=== PATIENT | male | born 1960 | race Caucasian/White ===

== ENCOUNTER 2016-12-15 11:41 | Emergency (ER) | payer MEDICAID ==
[~2016-12-15] VITALS: Ht 175.3 cm; Wt 76.2 kg
[2016-12-15 11:48] VITALS: BP 126/81
[2016-12-15] MEDS ORDERED: IBUPROFEN 400 MG TABLET ONE (11:55)
[2016-12-15] MEDS ORDERED: IBUPROFEN 400 MG TABLET PO ONE (12:00)
== END 2016-12-15 13:12 | disposition home or self-care (01) ==
LOC: ER 11:43
DX: S02.2XXA Fracture of nasal bones, initial encounter for closed fracture (principal); S00.83XA Contusion of other part of head, initial encounter; Y04.0XXA Assault by unarmed brawl or fight, initial encounter; Y93.89 Activity, other specified; Y92.89 Other specified places as the place of occurrence of the external cause; Y99.8 Other external cause status
CPT/HCPCS: 70486; 99284; A4606; Z7610

== ENCOUNTER 2017-06-28 20:23 | Emergency (ER) | payer MEDICAID ==
[~2017-06-28] VITALS: Ht 162.6 cm; Wt 70.8 kg
[2017-06-28 20:26] VITALS: BP 133/70
== END 2017-06-28 20:53 | disposition home or self-care (01) ==
LOC: ER 20:25
DX: L72.3 Sebaceous cyst (principal)
CPT/HCPCS: 99283; A4606; Z7610

== ENCOUNTER 2018-03-23 12:00 | Emergency (ER) | payer MEDICAID ==
[~2018-03-23] VITALS: Ht 172.7 cm; Wt 68.0 kg
--- NOTE | 2018-03-23 12:10 | NUR ---
LLQ PAIN X 2 MONTHS, WORSENING X 1 WEEK. NAD NOTED, VSS, RESP EVEN AND UNLABORED, PT WAS PUT ON MONITOR, WAITING FOR MD WANG
[2018-03-23] MEDS ORDERED: ACETAMINOPHEN ES 500 MG TABLET ONE (12:29)
[2018-03-23] MEDS ORDERED: IV NS 0.9% 1,000 ML BAG IV ONE (12:30)
[2018-03-23] MEDS ORDERED: ACETAMINOPHEN 325 MG TABLET PO ONE (12:30)
[2018-03-23 12:40] LABS: BASOPHILS # (AUTO) 0.1 /CMM (0.0-0.2); EOSINOPHILS % (AUTO) 8.9 % (0.0-6.0); HEMATOCRIT 34 % (39-51); HEMOGLOBIN 11.1 g/dL (13.5-17.5); LYMPHOCYTES # (AUTO) 1.4 /CMM (0.8-4.8); LYMPHOCYTES % (AUTO) 16.5 % (20.0-44.0); MEAN CORPUSCULAR HGB CONC 33 g/dl (31.0-36.0); MEAN CORPUSCULAR VOLUME 82 fL (80-96); MONOCYTES # (AUTO) 0.5 /CMM (0.1-1.30); MONOCYTES % (AUTO) 5.9 % (2.0-12.0); NEUTROPHILS # (AUTO) 5.7 /CMM (1.8-8.9); NEUTROPHILS % (AUTO) 67.7 % (43.0-81.0); PLATELET COUNT (AUTO) 479 /CMM (150-450); RDW COEFFICIENT OF VARIATION 14.5 (11.5-15.0); RED BLOOD CELL COUNT(AUTO) 4.12 MIL/uL (4.5-6.0); WHITE BLOOD COUNT (AUTO) 8.4 K/uL (4.3-11.0)
[2018-03-23 12:51] LABS: CALCIUM, SERUM 8.7 mg/dL (8.5-10.1); CREATININE 0.9 mg/dL (0.6-1.3); POTASSIUM 4.3 mmol/L (3.5-5.1)
[2018-03-23 12:57] LABS: BILIRUBIN,DIRECT 0.1 mg/dL (0.0-0.2); BILIRUBIN,TOTAL 0.2 mg/dL (0.2-1.0); TOTAL PROTEIN, SERUM 7.4 g/dL (6.4-8.2)
[2018-03-23] MEDS ORDERED: CT SWABBABLE VALVE TRANS SET 1 EA INFUS.SET MC ONE (13:06)
[2018-03-23] MEDS ORDERED: IOHEXOL-300 100 ML VIAL IV ONE (13:06)
[2018-03-23] MEDS ORDERED: IV NS 0.9% 500 ML IV ONE (13:06)
--- NOTE | 2018-03-23 13:35 | NUR ---
URINE SENT TO LAB
[2018-03-23 13:42] LABS: APPEARANCE,URINE Clear (CLEAR); BILIRUBIN,URINE Negative (NEGATIVE); BLOOD, URINE Negative Ery/uL (NEGATIVE); COLOR,URINE Yellow (YELLOW); KETONES,URINE Negative (NEGATIVE); LEUKOCYTE ESTERASE ,URINE Negative (NEGATIVE); NITRITE, URINE Negative (NEGATIVE); PROTEIN,URINE Negative (NEGATIVE); UGLUCOSE Negative (NEGATIVE); UROBILINOGEN,URINE 0.2 EU/dL (0.2)
[2018-03-23 15:13] VITALS: BP 124/80
--- NOTE | 2018-03-23 15:15 | NUR ---
Patient discharged to home in stable condition. Written and verbal after care instructions given. Patient verbalizes understanding of instruction.IV removed. Catheter intact and site benign. Pressure and 4x4 applied to site. No bleeding noted.
== END 2018-03-23 15:18 | disposition home or self-care (01) ==
LOC: ER 12:06
DX: K63.9 Disease of intestine, unspecified (principal); D69.6 Thrombocytopenia, unspecified; K76.89 Other specified diseases of liver; M51.37 Other intervertebral disc degeneration, lumbosacral region; K59.00 Constipation, unspecified; F17.200 Nicotine dependence, unspecified, uncomplicated
CPT/HCPCS: 36415; 71045-TC; 80048-TC; 80076-TC; 81000-TC; 85025-TC; A4606; J7030; J7040; Q9967; Z7610